=== PATIENT | male | born 1950 | race Caucasian/White ===

== ENCOUNTER 2017-09-21 03:12 | Observation (INO) | payer OTHER ==
[2017-09-21] VITALS (15 sets, daily range): BP systolic 106–143; BP diastolic 63–86; PULSE 90–116; RESP 16–20; TEMP 96.4–98.6; O2SAT 92–96
[~2017-09-21] VITALS: Ht 177.8 cm; Wt 98.7 kg
[~2017-09-21 03:12] MED LIST: ASPI1TAB69 PO; ATOR10TA15 PO; CLOTCRE TOPICAL; DIAZ5TAB PO; GABA100C4 PO; OXYC1TAB35 PO; PANT40TA3 PO; PLAV75TA29 PO
[2017-09-21] MEDS ORDERED: SODIUM CHLORID 0.9% 500 ML INJ 500 ML IV ONE ×2 (03:45→04:30)
[2017-09-21] MEDS ORDERED: SODIUM CHLORIDE 0.9% FLUSH 10 ML FLUSH IVF PRN (03:45)
[2017-09-21] MEDS ORDERED: ASPIRIN 81 MG CHEW TAB PO ONE (03:45)
[2017-09-21 04:06] LABS: AUTOMATED NEUTROPHIL # 14.8 TH/MM3 (1.8-7.7); BASOPHIL # 0.5 TH/MM3 (0-0.2); BASOPHIL % 2.7 % (0.0-2.0); EOSINOPHIL # 0.2 TH/MM3 (0-0.4); EOSINOPHIL % 1.4 % (0.0-4.0); HEMATOCRIT 55.7 % (39.0-51.0); HEMOGLOBIN 18.6 GM/DL (13.0-17.0); LYMPH % 5.5 % (9.0-44.0); LYMPHOCYTE # 0.9 TH/MM3 (1.0-4.8); MEAN CELL VOLUME 87.3 FL (80.0-100.0); MEAN CORPUSCULAR HEMOGLOBIN 29.1 PG (27.0-34.0); MEAN CORPUSCULAR HGB CONC 33.3 % (32.0-36.0); MEAN PLATELET VOLUME 8.8 FL (7.0-11.0); MONO % 3.8 % (0.0-8.0); MONOCYTE # 0.6 TH/MM3 (0-0.9); NEUT % 86.6 % (16.0-70.0); PLATELET COUNT 296 TH/MM3 (150-450); RED BLOOD COUNT 6.38 MIL/MM3 (4.50-5.90); RED CELL DISTRIBUTION WIDTH 13.1 % (11.6-17.2)
[2017-09-21 04:14] LABS: CHLORIDE 104 MEQ/L (98-107); SODIUM (NA) 137 MEQ/L (136-145)
[2017-09-21 04:16] LABS: CALCIUM 8.8 MG/DL (8.5-10.1)
[2017-09-21 04:17] LABS: BICARBONATE 25.3 MEQ/L (21.0-32.0); BLOOD UREA NITROGEN 16 MG/DL (7-18); GLUCOSE,RANDOM 177 MG/DL (74-106); MAGNESIUM 2.1 MG/DL (1.5-2.5)
[2017-09-21 04:18] LABS: PROTHROMBIN TIME - PATIENT 10.6 SEC (9.8-11.6)
[2017-09-21 04:20] LABS: GLOMERULAR FILTRATION RATE 55 ML/MIN (>89)
[2017-09-21 04:25] LABS: TROPONIN I LESS THAN 0.02 NG/ML (0.02-0.05)
[2017-09-21] MEDS ORDERED: ONDANSETRON HCL 4 MG/2 ML VIAL IV PUSH ONE (04:30)
--- NOTE | 2017-09-21 04:38 | PD ---
HPI Chief Complaint: Chest Pain Time Seen by Provider: 03:45 Travel History International Travel<30 days: No Contact w/Intl Traveler<30days: No Traveled to known affect area: No History of Present Illness HPI 67-year-old male presents to the emergency department by private transfer patient the care of her spouse for complaint of retrosternal chest pain and belching. Patient states he took Tums prior to arrival to the emergency department without symptom relief. Patient also complains of generalized weakness some shortness of breath and reports prior history of blood clots. 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 Patient was under the care of Dr. Parker. Patient also is under the care of Dr. Craig for presumptive management of dyslipidemia and high risk for coronary vessel disease. Patient does not smoke cigarettes. Patient denies any recent long distance travel protracted bedrest or surgical procedure. Patient denies any lower extremity numbness tingling weakness pallor or pain. Patient states he was awakened from sleep with symptoms. Patient denies any referred neck jaw back shoulder arm mid scapular abdominal pain. Patient denies any nausea or vomiting. Patient denies any diaphoresis. Patient states that he has taken no aspirin prior to arrival to the emergency department. Patient does take Plavix and aspirin on a daily basis. Patient states he has been taking his medications as prescribed. Patient describes discomfort as a tightness denies any sharp stabbing or ripping tearing discomfort and denies any abdominal pain. Pain is described as 1/10 in intensity. 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) Cardiovascular Problems: No Diminished Hearing: No Gastrointestinal Disorders: Yes GERD: Yes Musculoskeletal: No Neurologic: No Respiratory: No Tetanus Vaccination: Unknown Influenza Vaccination: Yes Past Surgical History Abdominal Surgery: No Cardiac Surgery: No Ear Surgery: No Endocrine Surgery: No Eye Surgery: No Genitourinary Surgery: No Oral Surgery: Yes (Peridontal ) Thoracic Surgery: No Other Surgery: Yes (peridontal surgery and melanoma removal, vascular) Social History Alcohol Use: Yes (RARE) Tobacco Use: Yes ("vapes") Substance Use: No Allergies-Medications (Allergen,Severity, Reaction): Coded Allergies: No Known Allergies (Unverified Allergy, Unknown, 09/21/17) Reported Meds & Prescriptions Reported Meds & Active Scripts Active Gabapentin 100 Mg Cap 200 Mg PO TID Two capsule three times a day Pantoprazole (Pantoprazole Sodium) 40 Mg Tab 40 Mg PO DAILY Plavix (Clopidogrel Bisulfate) 75 Mg Tab 75 Mg PO DAILY Clotrimazole-Betamethasone Topical (Betamethasone/Clotrimazole) 1-0.05% Cream 1 Applic TOPICAL BID Atorvastatin (Atorvastatin Calcium) 10 Mg Tab 10 Mg PO HS Diazepam 5 Mg Tab 5 Mg PO Q6HR PRN Oxycodone-Acetaminophen 7.5-325 mg Tab 1 Tab PO Q6H PRN Reported Aspirin 81 Mg Tabdr 81 Mg PO DAILY Review of Systems Except as stated in HPI: all other systems reviewed are Neg General / Constitutional: No: Fever, Chills HENT: No: Congestion Cardiovascular: Positive: Chest Pain or Discomfort Respiratory: Positive: Shortness of Breath Gastrointestinal: No: Nausea, Abdominal Pain Genitourinary: No: Flank Pain Musculoskeletal: No: Myalgias, Arthralgias, Weakness, Cramping, Edema, Pain Skin: No Rash Neurologic: No: Weakness Psychiatric: Positive: Anxiety Hematologic/Lymphatic: No: Lymph Node Enlargement Physical Exam Narrative GENERAL: Well-developed well-nourished anxious appearing male in no acute respiratory distress SKIN: Warm and dry. HEAD: Normocephalic. EYES: No scleral icterus. No injection or drainage. NECK: Supple, trachea midline. No JVD or lymphadenopathy. CARDIOVASCULAR: Regular rate and rhythm without murmurs, gallops, or rubs. RESPIRATORY: Breath sounds equal bilaterally. No accessory muscle use. GASTROINTESTINAL: Abdomen soft, non-tender, nondistended. MUSCULOSKELETAL: No cyanosis, or edema. Radial pulses 2+ to palpation bilaterally dorsalis pedis pulses 2+ to palpation bilaterally no lower or upper extremity coolness or pallor; brisk capillary refill less than 2 seconds BACK: Nontender without obvious deformity. No CVA tenderness. Data Data Last Documented VS Vital Signs Date Time Temp Pulse Resp B/P (MAP) Pulse Ox O2 Delivery O2 Flow Rate FiO2 09/21/17 06:12 102 16 122/68 (86) 95 Nasal Cannula 2.00 09/21/17 03:38 97.3 Orders Orders Electrocardiogram (09/21/17 03:45) Basic Metabolic Panel (Bmp) (09/21/17 03:45) Ckmb (Isoenzyme) Profile (09/21/17 03:45) Complete Blood Count With Diff (09/21/17 03:45) Magnesium (Mg) (09/21/17 03:45) Prothrombin Time / Inr (Pt) (09/21/17 03:45) Act Partial Throm Time (Ptt) (09/21/17 03:45) Troponin I (09/21/17 03:45) Ecg Monitoring (09/21/17 03:45) Bilateral Bp Monitoring (09/21/17 03:45) Iv Access Insert/Monitor (09/21/17 03:45) Oximetry (09/21/17 03:45) Oxygen Administration (09/21/17 03:45) Aspirin Chew (Aspirin Chew) (09/21/17 03:45) Sodium Chloride 0.9% Flush (Ns Flush) (09/21/17 03:45) Sodium Chlorid 0.9% 500 Ml Inj (Ns 500 M (09/21/17 03:45) Ondansetron Inj (Zofran Inj) (09/21/17 04:30) Sodium Chlorid 0.9% 500 Ml Inj (Ns 500 M (09/21/17 04:30) Chest, Single Ap (09/21/17 03:45) Ct Pulmonary Angiogram (09/21/17 ) Ct Abd/Pel W Iv Contrast(Rout) (09/21/17 ) Hepatic Functional Panel (09/21/17 03:53) Iohexol 350 Inj (Omnipaque 350 Inj) (09/21/17 05:22) Urinalysis - C+S If Indicated (09/21/17 06:20) Admit Order (Ed Use Only) (09/21/17 ) Tuckpointer / Telemetry HERNAN.Q8H (09/21/17 06:20) Activity Oob With Assistance (09/21/17 06:20) Notify Dr: Other (09/21/17 06:20) Labs Laboratory Tests Test 09/21/17 03:53 White Blood Count 17.0 TH/MM3 Red Blood Count 6.38 MIL/MM3 Hemoglobin 18.6 GM/DL Hematocrit 55.7 % Mean Corpuscular Volume 87.3 FL Mean Corpuscular Hemoglobin 29.1 PG Mean Corpuscular Hemoglobin Concent 33.3 % Red Cell Distribution Width 13.1 % Platelet Count 296 TH/MM3 Mean Platelet Volume 8.8 FL Neutrophils (%) (Auto) 86.6 % Lymphocytes (%) (Auto) 5.5 % Monocytes (%) (Auto) 3.8 % Eosinophils (%) (Auto) 1.4 % Basophils (%) (Auto) 2.7 % Neutrophils # (Auto) 14.8 TH/MM3 Lymphocytes # (Auto) 0.9 TH/MM3 Monocytes # (Auto) 0.6 TH/MM3 Eosinophils # (Auto) 0.2 TH/MM3 Basophils # (Auto) 0.5 TH/MM3 CBC Comment AUTO DIFF Differential Comment AUTO DIFF CONFIRMED Platelet Estimate NORMAL Platelet Morphology Comment NORMAL Red Cell Morphology Comment NORMAL Prothrombin Time 10.6 SEC Prothromb Time International Ratio 1.0 RATIO Activated Partial Thromboplast Time 23.8 SEC Blood Urea Nitrogen 16 MG/DL Creatinine 1.30 MG/DL Random Glucose 177 MG/DL Total Protein 7.9 GM/DL Albumin 3.9 GM/DL Calcium Level 8.8 MG/DL Magnesium Level 2.1 MG/DL Alkaline Phosphatase 107 U/L Aspartate Amino Transf (AST/SGOT) 20 U/L Alanine Aminotransferase (ALT/SGPT) 32 U/L Total Bilirubin 0.3 MG/DL Direct Bilirubin 0.1 MG/DL Sodium Level 137 MEQ/L Potassium Level 4.9 MEQ/L Chloride Level 104 MEQ/L Carbon Dioxide Level 25.3 MEQ/L Anion Gap 8 MEQ/L Estimat Glomerular Filtration Rate 55 ML/MIN Indirect Bilirubin 0.2 MG/DL Total Creatine Kinase 84 U/L Troponin I LESS THAN 0.02 NG/ML [facility] Medical Decision Making Medical Screen Exam Complete: Yes Emergency Medical Condition: Yes Medical Record Reviewed: Yes Interpretation(s) EKG normal sinus rhythm rate [address] elevation injury pattern or ectopy noted Last Impressions Chest X-Ray 09/21/17 6400 Signed Impressions: Service Date/Time: Thursday, September 21, 2017 04:20 - CONCLUSION: No acute disease. Kenney Birmingham MD CBC & BMP Diagram 09/21/17 03:53 Total Protein 7.9, Albumin 3.9, Calcium Level 8.8, Magnesium Level 2.1, Alkaline Phosphatase 107, Aspartate Amino Transf (AST/SGOT) 20, Alanine Aminotransferase (ALT/SGPT) 32, Total Bilirubin 0.3, Direct Bilirubin 0.1 Vital Signs Date Time Temp Pulse Resp B/P (MAP) Pulse Ox O2 Delivery O2 Flow Rate FiO2 09/21/17 05:02 90 16 143/86 (105) 96 Nasal Cannula 2.00 09/21/17 04:17 114/73 (87) 117/72 (87) 09/21/17 04:04 Room Air 09/21/17 04:03 95 Nasal Cannula 2.00 09/21/17 04:03 18 95 Nasal Cannula 2.00 09/21/17 03:38 97.3 101 18 109/74 (86) 93 Room Air 09/21/17 03:19 97.5 104 20 106/63 (77) 94 Troponin I: Less than 0.02, not elevated; CK total 84, not elevated Differential Diagnosis Chest pain ACS myocardial infarction dissection PE Narrative Course Patient immediately placed on child monitor with continuous pulse oximetry 2 L /min nasal cannula administered EKG performed which is sinus rhythm rate [address] elevation or injury pattern or ectopy noted IV access obtained specimens collected and sent for resulting patient administered aspirin 162 mg by mouth chewed patient's blood pressure is low normal therefore 500 cc bolus of normal saline administered prior to attempting administration of nitroglycerin for chest discomfort currently however pain is only 1/2 intensity At 4:30 AM patient is undergoing imaging study/chest x-ray and complains of nausea with episode of vomiting Zofran 4 mg IV administered additional bolus of normal saline administered At 4:33 AM patient rates his discomfort 0/10 intensity and states his nausea has resolved patient has received a one-time dose of Zofran 4 mg IV and is receiving fluid bolus. At 5:10 AM patient informed of normal range cardiac enzymes patient reports continues to feel improved we will proceed with CT pulmonary angiogram due to complaint of shortness of breath and chest pain upon arrival as well as CT abdomen pelvis to evaluate further for possible intra-abdominal versus intrathoracic etiology for leukocytosis with left shift as well as chest pain nausea shortness of breath and generalized weakness. Sepsis Criteria SIRS Criteria (2 or more): Heart rate over 90, WBC > 00547, < 4000 or > 10% bands Physician Communication Physician Communication discussed with [facility] service for obs--chest pain/atypical cp, leukocytosis, sirs Diagnosis Primary Impression: Chest pain Additional Impressions: Leukocytosis SIRS (systemic inflammatory response syndrome) Mishel Moss MD Sep 21, 2017 04:38
--- NOTE | 2017-09-21 04:48 | RADRPT ---
EXAM DATE/TIME: 09/21/2017 04:20 [facility] COMPARISON: No previous studies available for comparison. INDICATIONS : Chest pain for 3 hours MEDICAL HISTORY : None. SURGICAL HISTORY : None. ENCOUNTER: Initial ACUITY: 1 day PAIN SCORE: 8/10 LOCATION: Midline chest FINDINGS: A single view of the chest demonstrates the lungs to be symmetrically aerated without evidence of mas s, infiltrate or effusion. The cardiomediastinal contours are unremarkable. Osseous structures are intact. CONCLUSION: No acute disease. Kenney Birmingham MD on September 21, 2017 at 4:46 Board Certified Radiologist. This report was verified electronically.
[2017-09-21 04:57] LABS: ALBUMIN 3.9 GM/DL (3.4-5.0)
[2017-09-21 05:00] LABS: ALT (GPT) 32 U/L (12-78); AST (GOT) 20 U/L (15-37); DIRECT BILIRUBIN ADULT 0.1 MG/DL (0.0-0.2)
[2017-09-21 05:02] LABS: INDIRECT BILIRUBIN 0.2 MG/DL (0.0-0.8); TOTAL BILIRUBIN ADULT 0.3 MG/DL (0.2-1.0); TOTAL PROTEIN 7.9 GM/DL (6.4-8.2)
[2017-09-21 05:03] LABS: ALKALINE PHOSPHATASE 107 U/L (45-117)
[2017-09-21] MEDS ORDERED: IOHEXOL 350 MG/ML 10 ML VIAL (for RAD DIAG) IVCONTRAST ONE (05:22)
--- NOTE | 2017-09-21 05:43 | RADRPT ---
EXAM DATE/TIME: 09/21/2017 05:05 [facility] COMPARISON: CHEST SINGLE AP, September 21, 2017, 4:20. INDICATIONS : Dyspnea. Chest pain. IV CONTRAST: 100 cc Omnipaque 350 (iohexol) IV ; Cumulative dose for multiple exams. RADIATION DOSE: 22.58 CTDIvol (mGy) ; Combined studies MEDICAL HISTORY : None SURGICAL HISTORY : None. ENCOUNTER: Initial ACUITY: 1 day PAIN SCALE: 1/10 LOCATION: chest TECHNIQUE: Volumetric scanning of the chest was performed using a pulmonary embolism protocol MIP images were re constructed. Using automated exposure control and adjustment of the mA and/or kV according to patien t size, radiation dose was kept as low as reasonably achievable to obtain optimal diagnostic quality images. DICOM format image data is available electronically for review and comparison. Follow-up recommendations for detected pulmonary nodules are based at a minimum on nodule size and pa tient risk factors according to Fleischner Society Guidelines. FINDINGS: PULMONARY ARTERIES: No filling defects are seen in the pulmonary arteries through the segmental level. LUNGS: There is no consolidation or pneumothorax . No concerning pulmonary nodule is visualized. Underlying emphysema and hyperinflation are noted. There is bullous change greatest in the upper lobes. PLEURAE: There is no pleural thickening or pleural effusion. MEDIASTINUM: There is good visualization of the great vessels of the middle mediastinum. No evidence of mediastin al or hilar adenopathy/mass. MUSCULOSKELETAL: Within normal limits for patient age. MISCELLANEOUS: The visualized upper abdominal organs demonstrate no acute abnormality. There is a small hiatal herni a. There are low attenuation lesions in the liver. CONCLUSION: 1. Emphysema and bullous change. 2. No evidence of pulmonary embolism. Kenney Birmingham MD on September 21, 2017 at 5:38 Board Certified Radiologist. This report was verified electronically.
--- NOTE | 2017-09-21 05:46 | RADRPT ---
EXAM DATE/TIME: 09/21/2017 05:05 [facility] COMPARISON: CTA RUNOFF W 3D RECON, January 28, 2015, 21:39. INDICATIONS : Abdominal pain. Nausea. Vomiting. IV CONTRAST: 100 cc Omnipaque 350 (iohexol) IV ; Cumulative dose for multiple exams. ORAL CONTRAST: No oral contrast ingested. RADIATION DOSE: 21.74 CTDIvol (mGy) ; Combined studies MEDICAL HISTORY : None SURGICAL HISTORY : None. ENCOUNTER: Initial ACUITY: 1 day PAIN SCALE: 1/10 LOCATION: Bilateral abdomen. TECHNIQUE: Volumetric scanning of the abdomen and pelvis was performed. Using automated exposure control and ad justment of the mA and/or kV according to patient size, radiation dose was kept as low as reasonably achievable to obtain optimal diagnostic quality images. DICOM format image data is available electro nically for review and comparison. FINDINGS: LOWER LUNGS: The visualized lower lungs are clear. LIVER: Homogeneous density with benign appearing low-density lesions in the liver which appear cystic. There is no dilation of the biliary tree. No calcified gallstones. SPLEEN: Normal size without lesion. PANCREAS: Within normal limits. KIDNEYS: Normal in size and shape. There is no mass, stone or hydronephrosis. ADRENAL GLANDS: Within normal limits. VASCULAR: There is no aortic aneurysm. BOWEL/MESENTERY: There is a small hiatal hernia. The stomach, small bowel, and colon demonstrate no acute abnormality. There is no free intraperitoneal air or fluid. ABDOMINAL WALL: Within normal limits. RETROPERITONEUM: There is no lymphadenopathy. BLADDER: No wall thickening or mass. REPRODUCTIVE: Within normal limits. INGUINAL: There is no lymphadenopathy or hernia. MUSCULOSKELETAL: Within normal limits for patient age. CONCLUSION: 1. Unremarkable bowel gas pattern. 2. Benign-appearing cystic lesions in the liver. 3. Small hiatal hernia. Kenney Birmingham MD on September 21, 2017 at 5:42 Board Certified Radiologist. This report was verified electronically.
[2017-09-21 08:19] LABS: BILIRUBIN, URINE NEG (NEG); BLOOD, URINE TRACE (NEG); GLUCOSE,URINE NEG (NEG); KETONE, URINE NEG (NEG); NITRITE,URINE NEG (NEG); URINE COLOR YELLOW (YELLW/STRAW); URINE LEUKOCYTE ESTERASE NEG (NEG)
[2017-09-21 08:23] LABS: RBC, URINE 0-3 /hpf (0-3); SQUAMOUS EPITHELIAL CELL URINE 0-5 /hpf (0-5)
--- NOTE | 2017-09-21 13:46 | HHI.HP ---
[facility] Ralf Zamarripa MD Admission Diagnosis Chest pain; leukocytosis Diagnoses: (1) Chest pain (2) SIRS (systemic inflammatory response syndrome) Chief Complaint: Chest pain Travel History International Travel<30 Days: No Contact w/Intl Traveler <30 Da: No Traveled to Known Affected Are: No Sepsis Criteria SIRS Criteria (2 or more): Heart rate over 90, WBC > 42677, < 4000 or > 10% bands Criteria Outcome: Meets SIRS criteria History of Present Illness Written by Kanika Edouard, acting as scribe for Dr. Wu on 09/21/17 at 13:30. This is a 67-year-old male patient with a known medical history of GERD, melanoma and PAD who presented to the ED with complaints of chest pain. Patient states he woke up at 0130 with burping and chest pain. Patient characterized the pain as aching in nature. Chest pain lasts roughly 5 minutes, release of gas and burping makes the pain worse, and dissipates after. Denies any radiation of pain. No chest pain to palpation. Denies any known alleviating factors. Does admit to associated emesis x 6 times today. Denies nausea. Admits to lightheadedness, dizzy and weak and diaphoresis. Attempted eating today but has no appetite with continued gas and burping. Denies any recent fever, chills , cough. Does admit to seasonal allergies. Denies any prior CAD or heart disease. Left leg blood clot in 2014. Denies any PE. Does have PAD with left lower extremity stent and does take Plavix, aspirin and Lipitor. Did undergo a cardiac stress test June 2016 which was reportedly negative. Followed with Dr. Craig and sees him every 6 months. Admits to smoking 1 ppd x 30 years, quit in December 2014. Admits to using vapors. At the time of assessment patient's chest pain has improved. is at bedside assisting with history. Review of Systems Constitutional: COMPLAINS OF: Diaphoretic episodes, DENIES: Fever, Chills Eyes: DENIES: Blurred vision, Diplopia Respiratory: COMPLAINS OF: Shortness of breath, DENIES: Cough, Sputum production Cardiovascular: COMPLAINS OF: Chest pain, Palpitations Gastrointestinal: COMPLAINS OF: Vomiting, DENIES: Abdominal pain, Black stools , Bloody stools, Constipation, Diarrhea, Nausea Genitourinary: COMPLAINS OF: Urinary frequency Musculoskeletal: DENIES: Joint pain Psychiatric: DENIES: Anxiety Except as stated in HPI: all other systems reviewed are Neg Past Family Social History Past Medical History GERD on PPI Degenerative disc disease in back Melanoma PAD Past Surgical History Melanoma removed on left knee. Skin cancer on back removed. Left lower extremity stents. Reported Medications Active Gabapentin 100 Mg Cap 200 Mg PO TID Two capsule three times a day Pantoprazole (Pantoprazole Sodium) 40 Mg Tab 40 Mg PO DAILY Plavix (Clopidogrel Bisulfate) 75 Mg Tab 75 Mg PO DAILY Clotrimazole-Betamethasone Topical (Betamethasone/Clotrimazole) 1-0.05% Cream 1 Applic TOPICAL BID Atorvastatin (Atorvastatin Calcium) 10 Mg Tab 10 Mg PO HS Diazepam 5 Mg Tab 5 Mg PO Q6HR PRN Oxycodone-Acetaminophen 7.5-325 mg Tab 1 Tab PO Q6H PRN Reported Aspirin 81 Mg Tabdr 81 Mg PO DAILY Allergies: Coded Allergies: No Known Allergies (Unverified Allergy, Unknown, 09/21/17) Active Ordered Medications Current Medications Medications (Trade) Dose Ordered Sig/Edwin Route Start Time Stop Time Status Last Admin (NS Flush) 2 ml UNSCH PRN IVF 09/21/17 03:45 Family History Mom had unspecified cancer. Father had emphysema, was a smoker. Social History Denies any current tobacco use. Does admit to smoking 1 ppd cigarettes history for 30 years. Quit in 2014. Physical Exam Vital Signs Vital Signs Date Time Temp Pulse Resp B/P (MAP) Pulse Ox O2 Delivery O2 Flow Rate FiO2 09/21/17 12:00 96.7 116 19 110/69 (83) 92 09/21/17 09:00 96.6 110 18 119/70 (86) 94 09/21/17 09:00 96.6 110 18 119/70 (86) 94 09/21/17 08:45 09/21/17 07:40 98.0 109 16 111/64 (80) 96 Nasal Cannula 2.00 09/21/17 06:12 102 16 122/68 (86) 95 Nasal Cannula 2.00 09/21/17 05:02 90 16 143/86 (105) 96 Nasal Cannula 2.00 09/21/17 04:17 114/73 (87) 117/72 (87) 09/21/17 04:04 Room Air 09/21/17 04:03 95 Nasal Cannula 2.00 09/21/17 04:03 18 95 Nasal Cannula 2.00 09/21/17 03:38 97.3 101 18 109/74 (86) 93 Room Air 09/21/17 03:19 97.5 104 20 106/63 (77) 94 Physical Exam GENERAL: This is a well-nourished, well-developed patient, in no apparent distress. SKIN: No rashes, ecchymoses or lesions. Cool and dry. HEAD: Atraumatic. Normocephalic. No temporal or scalp tenderness. EYES: Pupils equal round and reactive. Extraocular motions intact. No scleral icterus. No injection or drainage. ENT: Nose without bleeding, purulent drainage or septal hematoma. Throat without erythema, tonsillar hypertrophy or exudate. Uvula midline. Airway patent. NECK: Trachea midline. No JVD or lymphadenopathy. Supple, nontender, no meningeal signs. CARDIOVASCULAR: Regular rate and rhythm without murmurs, gallops, or rubs. RESPIRATORY: Clear to auscultation. Breath sounds equal bilaterally. No wheezes , rales, or rhonchi. GASTROINTESTINAL: Abdomen soft, non-tender, nondistended. No hepato-splenomegaly , or palpable masses. No guarding. MUSCULOSKELETAL: Extremities without clubbing, cyanosis, or edema. No joint tenderness, effusion, or edema noted. No calf tenderness. Negative Homans sign bilaterally. NEUROLOGICAL: Awake and alert. Cranial nerves II through XII intact. Motor and sensory grossly within normal limits. Five out of 5 muscle strength in all muscle groups. Normal speech. Laboratory Laboratory Tests Test 09/21/17 03:53 09/21/17 06:30 09/21/17 08:10 White Blood Count 17.0 Red Blood Count 6.38 Hemoglobin 18.6 Hematocrit 55.7 Mean Corpuscular Volume 87.3 Mean Corpuscular Hemoglobin 29.1 Mean Corpuscular Hemoglobin Concent 33.3 Red Cell Distribution Width 13.1 Platelet Count 296 Mean Platelet Volume 8.8 Neutrophils (%) (Auto) 86.6 Lymphocytes (%) (Auto) 5.5 Monocytes (%) (Auto) 3.8 Eosinophils (%) (Auto) 1.4 Basophils (%) (Auto) 2.7 Neutrophils # (Auto) 14.8 Lymphocytes # (Auto) 0.9 Monocytes # (Auto) 0.6 Eosinophils # (Auto) 0.2 Basophils # (Auto) 0.5 CBC Comment AUTO DIFF Differential Comment AUTO DIFF CONFIRMED Platelet Estimate NORMAL Platelet Morphology Comment NORMAL Red Cell Morphology Comment NORMAL Prothrombin Time 10.6 Prothromb Time International Ratio 1.0 Activated Partial Thromboplast Time 23.8 Blood Urea Nitrogen 16 Creatinine 1.30 Random Glucose 177 Total Protein 7.9 Albumin 3.9 Calcium Level 8.8 Magnesium Level 2.1 Alkaline Phosphatase 107 Aspartate Amino Transf (AST/SGOT) 20 Alanine Aminotransferase (ALT/SGPT) 32 Total Bilirubin 0.3 Direct Bilirubin 0.1 Sodium Level 137 Potassium Level 4.9 Chloride Level 104 Carbon Dioxide Level 25.3 Anion Gap 8 Estimat Glomerular Filtration Rate 55 Indirect Bilirubin 0.2 Total Creatine Kinase 84 Troponin I LESS THAN 0.02 Lactic Acid Level 2.0 Urine Collection Type CLEAN CATCH Urine Color YELLOW Urine Turbidity CLEAR Urine pH 5.0 Urine Specific [place] LESS/EQUAL 1.005 Urine Protein NEG Urine Glucose (UA) NEG Urine Ketones NEG Urine Occult Blood TRACE Urine Nitrite NEG Urine Bilirubin NEG Urine Urobilinogen 0.2 Urine Leukocyte Esterase NEG Urine RBC 0-3 Urine Squamous Epithelial Cells 0-5 Microscopic Urinalysis Comment CULT NOT INDICATED Urine Collection Time 08:10 Date/Time Source Procedure Growth Status 09/21/17 06:35 Blood Peripheral Aerobic Blood Culture Pending Received 09/21/17 06:35 Blood Peripheral Anaerobic Blood Culture Pending Received Result Diagram: 09/21/17 0353 09/21/17 0353 Imaging Last Impressions Chest X-Ray 09/21/17 0345 Signed Impressions: Service Date/Time: Thursday, September 21, 2017 04:20 - CONCLUSION: No acute disease. Kenney Birmingham MD CT Angiography 09/21/17 0000 Signed Impressions: Service Date/Time: Thursday, September 21, 2017 05:05 - CONCLUSION: 1. Emphysema and bullous change. 2. No evidence of pulmonary embolism. Kenney Birmingham MD Abdomen/Pelvis CT 09/21/17 0000 Signed Impressions: Service Date/Time: Thursday, September 21, 2017 05:05 - CONCLUSION: 1. Unremarkable bowel gas pattern. 2. Benign-appearing cystic lesions in the liver. 3. Small hiatal hernia. Kenney Birmingham MD Septic Shock Reassessment Septic shock perfusion: reassessment completed Caprini VTE Risk Assessment Caprini VTE Risk Assessment: Mod/High Risk (score >= 2) Caprini Risk Assessment Model Point Value = 1 Point Value = 2 Point Value = 3 Point Value = 5 Age 41-60 Minor surgery BMI > 25 kg/m2 Swollen legs Varicose veins or History of unexplained or recurrent spontaneous Oral contraceptives or hormone replacement Sepsis (< 1 month) Serious lung disease, including pneumonia (< 1 month) Abnormal pulmonary function Acute myocardial infarction Congestive heart failure (< 1 month) History of inflammatory bowel disease Medical patient at bed rest Age 61-74 Arthroscopic surgery Major open surgery (> 45 min) Laparoscopic surgery (> 45 min) Malignancy Confined to bed (> 72 hours) Immobilizing plaster cast Central venous access Age >= 75 History of VTE Family history of VTE Factor V Leiden Prothrombin [id number] Lupus anticoagulant Anticardiolipin antibodies Elevated serum homocysteine Heparin-induced thrombocytopenia Other congenital or acquired thrombophilia Stroke (< 1 month) Elective arthroplasty Hip, pelvis, or leg fracture Acute spinal cord injury (< 1 month) Prophylaxis Regimen Total Risk Factor Score Risk Level Prophylaxis Regimen 0-1 Low Early ambulation 2 Moderate Order ONE of the following: *Sequential Compression Device (SCD) *Heparin 5000 units SQ BID 3-4 Higher Order ONE of the following medications: *Heparin 5000 units SQ TID *Enoxaparin/Lovenox 40 mg SQ daily (WT < 150 kg, CrCl > 30 mL/min) *Enoxaparin/Lovenox 30 mg SQ daily (WT < 150 kg, CrCl > 10-29 mL/min) *Enoxaparin/Lovenox 30 mg SQ BID (WT < 150 kg, CrCl > 30 mL/min) AND/OR *Sequential Compression Device (SCD) 5 or more Highest Order ONE of the following medications: *Heparin 5000 units SQ TID (Preferred with Epidurals) *Enoxaparin/Lovenox 40 mg SQ daily (WT < 150 kg, CrCl > 30 mL/min) *Enoxaparin/Lovenox 30 mg SQ daily (WT < 150 kg, CrCl > 10-29 mL/min) *Enoxaparin/Lovenox 30 mg SQ BID (WT < 150 kg, CrCl > 30 mL/min) AND *Sequential Compression Device (SCD) Assessment and Plan Problem List: (1) Chest pain ICD Code: R07.9 - Chest pain Status: Acute (2) SIRS (systemic inflammatory response syndrome) ICD Code: R65.10 - Systemic inflammatory response syndrome (SIRS) of non- infectious origin without acute organ dysfunction Status: Acute Assessment and Plan This is a 67-year-old male patient with a known medical history of GERD, melanoma and PAD who presented to the ED with complaints of chest pain. Chest pain - Serial EKGs and serial troponins have been ordered for ruling out ACS purposes. Follow troponin trend. EKG reviewed showing sinus tachycardia, no ST changes. Continued on cardiac telemetry, monitor for any arrhythmias. - Continue daily aspirin. Control pain, morphine IV available as needed for pain scale. - Supplemental O2 as needed, patient on room air with adequate saturations. Leukocytosis and tachycardia on presentation, meets SIRS criteria. Unknown source. Epigastric pain with diarrhea -Lactic acid 2.0. White blood cell 17.0. UA negative. Will check C. difficile for complaints of diarrhea. -Chest x-ray reviewed showing no acute disease. CT angiogram reviewed showing emphysema and bullous change. No evidence of PE. Abdomen/pelvis CT reviewed showing unremarkable bowel gas pattern. Small hiatal hernia. -Status post 1 L NS bolus in the ED. -Blood cultures ordered and pending follow. History of PAD and stent placement in left lower extremity: Continue aspirin, Plavix and gabapentin. Hyperlipidemia, chronic: Continue home atorvastatin. This note was transcribed by DEMETRIO Franco. I, Dr. Ashanti Wu personally performed the history, physical exam, and medical decision making; and confirmed the accuracy of the information in the transcribed note. Authenticated by Dr. Ashanti Wu on 09/21/17 at 13:30. Kanika Edouard Sep 21, 2017 13:46 Ashanti Wu MD Sep 21, 2017 13:50
[2017-09-21] MEDS ORDERED: NALOXONE HCL 0.4 MG/ML AMP IV PUSH PRN (14:15)
[2017-09-21] MEDS ORDERED: BISACODYL 10 MG SUPP RECTAL PRN (14:15)
[2017-09-21] MEDS ORDERED: SENNOSIDES 8.6 MG TAB PO PRN (14:15)
[2017-09-21] MEDS ORDERED: LACTULOSE SYRUP 20 GM/30 ML CUP PO PRN (14:15)
[2017-09-21] MEDS ORDERED: DIAZEPAM 5 MG TAB PO PRN (14:15)
[2017-09-21] MEDS ORDERED: MAGNESIUM HYDROXIDE SUSP 30 ML CUP PO PRN (14:15)
[2017-09-21] MEDS ORDERED: MORPHINE SULFATE 2 MG/ML INJ IV PUSH PRN (14:15)
[2017-09-21] MEDS: PANTOPRAZOLE SOD 40 MG DELAYED RELEASE TAB PO SCH (15:00)
[2017-09-21] MEDS ORDERED: LACTOBACILLUS ACIDOPHILUS TAB PO ONE (15:15)
[2017-09-21] MEDS: SODIUM CHLOR 0.9% 1000 ML INJ 1,000 ML IV SCH (16:15)
[2017-09-21] MEDS: CIPROFLOXACIN 400 MG PREMIX 200 ML IV SCH (17:00)
[2017-09-21] MEDS: metroNIDAZOLE 500 MG INJ 100 ML IV SCH (18:00)
[2017-09-21] MEDS: GABAPENTIN 100 MG CAP PO SCH (18:18)
[2017-09-21] MEDS: oxyCODONE/ACETAMINOPHEN 7.5 MG/325 MG TAB PO PRN (18:21)
--- NOTE | 2017-09-21 19:16 | EKG ---
Date Performed: 09/21/2017 Time Performed: 03:56:28 PTAGE: 67 years EKG: Sinus rhythm NORMAL ECG NO PREVIOUS TRACING DOCTOR: Pb Rubio Interpretating Date/Time 09/21/2017 19:14:18
[2017-09-21] MEDS: DOCUSATE SODIUM 50 MG/SENNA 8.6 MG TAB PO SCH (21:00)
[2017-09-21] MEDS: LACTOBACILLUS ACIDOPHILUS TAB PO SCH (22:13)
[2017-09-21] MEDS: ATORVASTATIN 10 MG TAB PO SCH (22:13)
[2017-09-21] MEDS: BETAMETHASONE/CLOTRIMAZOLE CREAM 15 GM TOPICAL SCH (22:13)
[2017-09-22] VITALS (7 sets, daily range): BP systolic 119–137; BP diastolic 64–75; PULSE 90–114; RESP 14–20; TEMP 96.4–98.6; O2SAT 92–95
[2017-09-22] MEDS: CIPROFLOXACIN 400 MG PREMIX 200 ML IV SCH ×3 (02:27→16:56)
[2017-09-22] MEDS: metroNIDAZOLE 500 MG INJ 100 ML IV SCH ×3 (03:10→16:58)
[2017-09-22] MEDS: SODIUM CHLOR 0.9% 1000 ML INJ 1,000 ML IV SCH ×3 (06:08→21:53)
--- NOTE | 2017-09-22 07:36 | HHI.PR ---
Subjective Remarks No n/v/d/c. Had 10 x diarrhea yesterday, none overnight. No fever or chills. Denies sob. Still with epigastric/chest pain mainly when burping. No fever or chills. Feels tired. Objective Vitals Vital Signs Date Time Temp Pulse Resp B/P (MAP) Pulse Ox O2 Delivery O2 Flow Rate FiO2 09/22/17 04:00 97.9 102 20 124/75 (91) 93 09/22/17 00:00 98.0 114 20 119/68 (85) 93 09/21/17 21:00 93 21 09/21/17 20:00 96.4 107 20 122/75 (91) 93 09/21/17 20:00 115 09/21/17 20:00 20 09/21/17 16:00 98.6 114 18 117/77 (90) 94 09/21/17 15:16 93 21 09/21/17 15:00 114 09/21/17 12:00 96.7 116 19 110/69 (83) 92 09/21/17 09:00 96.6 110 18 119/70 (86) 94 09/21/17 09:00 96.6 110 18 119/70 (86) 94 09/21/17 08:45 09/21/17 07:40 98.0 109 16 111/64 (80) 96 Nasal Cannula 2.00 I/O 09/21/17 09/21/17 09/21/17 09/22/17 09/22/17 09/22/17 07:00 15:00 23:00 07:00 15:00 23:00 Intake Total 1000 ml 1300 ml Balance 1000 ml 1300 ml Intake Oral 0 ml IV Total 1000 ml 1300 ml # Voids 2 # Bowel Movements 1 Result Diagram: 09/21/17 0353 09/21/17 0353 Imaging Last Impressions Chest X-Ray 09/21/17 0345 Signed Impressions: Service Date/Time: Thursday, September 21, 2017 04:20 - CONCLUSION: No acute disease. Kenney Birmingham MD CT Angiography 09/21/17 0000 Signed Impressions: Service Date/Time: Thursday, September 21, 2017 05:05 - CONCLUSION: 1. Emphysema and bullous change. 2. No evidence of pulmonary embolism. Kenney Birmingham MD Abdomen/Pelvis CT 09/21/17 0000 Signed Impressions: Service Date/Time: Thursday, September 21, 2017 05:05 - CONCLUSION: 1. Unremarkable bowel gas pattern. 2. Benign-appearing cystic lesions in the liver. 3. Small hiatal hernia. Kenney Birmingham MD Objective Remarks GENERAL: This is a well-nourished, well-developed patient, in no apparent distress. CARDIOVASCULAR: Regular rate and rhythm without murmurs, gallops, or rubs. RESPIRATORY: Clear to auscultation. Breath sounds equal bilaterally. No wheezes , rales, or rhonchi. GASTROINTESTINAL: Abdomen soft, non-tender, nondistended. No hepato-splenomegaly , or palpable masses. No guarding. MUSCULOSKELETAL: Extremities without clubbing, cyanosis, or edema. No joint tenderness, effusion, or edema noted. No calf tenderness. Negative Homans sign bilaterally. NEUROLOGICAL: Awake and alert. Cranial nerves II through XII intact. Motor and sensory grossly within normal limits. Five out of 5 muscle strength in all muscle groups. Normal speech. A/P Problem List: (1) Chest pain ICD Code: R07.9 - Chest pain Status: Acute (2) SIRS (systemic inflammatory response syndrome) ICD Code: R65.10 - Systemic inflammatory response syndrome (SIRS) of non- infectious origin without acute organ dysfunction Status: Acute Assessment and Plan This is a 67-year-old male patient with a known medical history of GERD, melanoma and PAD who presented to the ED with complaints of chest pain. Chest pain - Serial EKGs and serial troponins neg x3. EKG reviewed showing sinus tachycardia, no ST changes. Continued on cardiac telemetry, monitor for any arrhythmias. - Lexiscan is negative - Continue daily aspirin. Control pain, morphine IV available as needed for pain scale. - Supplemental O2 as needed, patient on room air with adequate saturations. Poss sepsis (Leukocytosis and tachycardia on presentation, poss GI source- GE). Epigastric pain with diarrhea and vomiting (GE) -Lactic acid 2.0. White blood cell 17.0, tachycardic on admission. UA negative. CXR no signs of infection. Will check C. difficile for complaints of diarrhea. -Chest x-ray reviewed showing no acute disease. CT angiogram reviewed showing emphysema and bullous change. No evidence of PE. Abdomen/pelvis CT reviewed showing unremarkable bowel gas pattern. Small hiatal hernia. -Status post 1 L NS bolus in the ED. -Blood cultures ordered and pending, follow. - WBC back to normal History of PAD and stent placement in left lower extremity: Continue aspirin, Plavix and gabapentin. Hyperlipidemia, chronic: Continue home atorvastatin. Plan for Lexiscan. Improved with abx diarrhea and vomiting resolving. Trend WBCs Poss DC later today or tomorrow if improved Lexiscan normal [id number] patient still with diarrhea ans feels weak. Discharge Planning DC plan DC home in stable condition condition, to follow-up with PCP and consultants as outpatient Diet healthy heart diet Activity ad xander. as tolerated Medications per med reconciliation Ashanti Wu MD Sep 22, 2017 07:36
[2017-09-22] MEDS: DOCUSATE SODIUM 50 MG/SENNA 8.6 MG TAB PO SCH ×2 (09:00→20:07)
[2017-09-22] MEDS: ASPIRIN EC 81 MG TABEC PO SCH (09:50)
[2017-09-22] MEDS: PANTOPRAZOLE SOD 40 MG DELAYED RELEASE TAB PO SCH (09:52)
[2017-09-22] MEDS: GABAPENTIN 100 MG CAP PO SCH ×3 (09:52→16:58)
[2017-09-22] MEDS: CLOPIDOGREL 75 MG TAB PO SCH (09:53)
[2017-09-22] MEDS: BETAMETHASONE/CLOTRIMAZOLE CREAM 15 GM TOPICAL SCH ×2 (09:53→20:07)
[2017-09-22] MEDS: LACTOBACILLUS ACIDOPHILUS TAB PO SCH ×2 (09:54→20:07)
[2017-09-22] MEDS ORDERED: CIPR500T2 PO (09:59)
[2017-09-22] MEDS ORDERED: METR-1 PO (09:59)
[2017-09-22] MEDS ORDERED: LACTCHW3 CHEW (09:59)
--- NOTE | 2017-09-22 10:02 | HHI.DCPOC ---
Discharge Care Plan Goals to Promote Your Health * To prevent worsening of your condition and complications * To maintain your health at the optimal level Directions to Meet Your Goals Take your medications as prescribed Follow your dietary instruction Follow activity as directed Keep your appointments as scheduled Take your immunizations and boosters as scheduled If your symptoms worsen call your PCP, if no PCP go to Urgent Care Center or Emergency Room Smoking is Dangerous to Your Health. Avoid second hand smoke Call the 24-hour hour crisis hotline for domestic abuse at Ashanti Wu MD Sep 22, 2017 10:02
[2017-09-22] MEDS: oxyCODONE/ACETAMINOPHEN 7.5 MG/325 MG TAB PO PRN (10:56)
[2017-09-22 11:27] LABS: AUTOMATED NEUTROPHIL # 5.8 TH/MM3 (1.8-7.7); BASOPHIL % 0.3 % (0.0-2.0); EOSINOPHIL # 0.1 TH/MM3 (0-0.4); EOSINOPHIL % 1.2 % (0.0-4.0); HEMATOCRIT 46.7 % (39.0-51.0); LYMPH % 11.3 % (9.0-44.0); LYMPHOCYTE # 0.8 TH/MM3 (1.0-4.8); MEAN CELL VOLUME 88.2 FL (80.0-100.0); MEAN CORPUSCULAR HEMOGLOBIN 30.3 PG (27.0-34.0); MEAN CORPUSCULAR HGB CONC 34.3 % (32.0-36.0); MEAN PLATELET VOLUME 8.2 FL (7.0-11.0); MONO % 9.8 % (0.0-8.0); MONOCYTE # 0.7 TH/MM3 (0-0.9); NEUT % 77.4 % (16.0-70.0); PLATELET COUNT 238 TH/MM3 (150-450); RED BLOOD COUNT 5.29 MIL/MM3 (4.50-5.90); RED CELL DISTRIBUTION WIDTH 13.4 % (11.6-17.2); WHITE BLOOD COUNT 7.4 TH/MM3 (4.0-11.0)
[2017-09-22 11:55] LABS: BICARBONATE 26.1 MEQ/L (21.0-32.0)
[2017-09-22] MEDS ORDERED: REGADENOSON INJ 0.4 MG/5 ML SYR IV ONE (12:20)
[2017-09-22 12:24] LABS: CALCIUM 7.5 MG/DL (8.5-10.1)
--- NOTE | 2017-09-22 13:34 | RADRPT ---
EXAM DATE/TIME: 09/22/2017 12:03 [facility] COMPARISON: No previous studies available for comparison. INDICATIONS : Substernal chest pain. Angina. DOSE: 26.8 mCi Tc99m Myoview at stress. 8.8 mCi Tc99m Myoview at rest. 0.4 mg Lexiscan STRESS SYMPTOMS: Shortness of breath and a headache. EJECTION FRACTION: 67% MEDICAL HISTORY : Gastroesophageal reflux disease. Peripheral vascular disease. Melanoma. SURGICAL HISTORY : Melanoma removal. ENCOUNTER: Initial ACUITY: 1 day PAIN SCALE: 4/10 LOCATION: Substernal chest TECHNIQUE: The patient underwent pharmacologic stress with infusion of prescribed dose. Continuous ECG tracing was monitored during stress. Gated SPECT imaging was performed after stress and conventional SPECT i maging was performed at rest. The examination was performed on a SPECT/CT scanner, both attenuation and non-corrected datasets were reviewed. FINDINGS: DISTRIBUTION: The maximum perfused segment at stress is in the septal wall. PERFUSION STUDY: There is mild decreased uptake in the anterior wall on stress and rest images which may be secondary to breast attenuation. There is mild decreased activity seen in the central portion of the inferior w all ventricle on stress images compared to rest images that is seen on the attenuated corrected image s. The differences in the order of 10-20%. GATED STUDY: There is intact wall motion and thickening without hypokinetic or dyskinetic segments. CONCLUSION: No definite areas of ischemia are seen. There is mild variation of activity seen in the septal portio n of the inferior wall at the mid ventricle on the stress images compared to the rest images on the a ttenuated corrected images. This is can be within normal variability. This borderline finding can be correlated with any other cardiac signs. RISK CATEGORY: Low (<1% Annual Mortality Rate) Earle Rasheed MD on September 22, 2017 at 13:19 Board Certified Radiologist. This report was verified electronically.
--- NOTE | 2017-09-22 19:57 | EKG ---
Date Performed: 09/21/2017 Time Performed: 19:58:40 PTAGE: 67 years EKG: SINUS TACHYCARDIA WITH OCCASIONAL SUPRAVENTRICULAR PREMATURE COMPLEXES NONSPECIFIC T-WAVE A BNORMALITY ABNORMAL RHYTHM ECG Since the PREVIOUS TRACING , no significant change noted PREVIOUS TRACIN09/21/2017 15.05 DOCTOR: Ventura Craig Interpretating Date/Time 09/22/2017 19:56:22
--- NOTE | 2017-09-22 19:57 | EKG ---
Date Performed: 09/21/2017 Time Performed: 15:05:24 PTAGE: 67 years EKG: SINUS TACHYCARDIA ABNORMAL RHYTHM ECG Since the PREVIOUS TRACING , no significant change noted PREVIOUS TRACIN09/21/2017 03.56 DOCTOR: Ventura Craig Interpretating Date/Time 09/22/2017 19:56:13
[2017-09-22] MEDS: ATORVASTATIN 10 MG TAB PO SCH (20:07)
[2017-09-23] VITALS: BP 122/59; PULSE 92; RESP 20; TEMP 96.9; O2SAT 93
[2017-09-23] MEDS: CIPROFLOXACIN 400 MG PREMIX 200 ML IV SCH ×2 (00:15→08:49)
[2017-09-23] MEDS: metroNIDAZOLE 500 MG INJ 100 ML IV SCH ×2 (02:00→10:00)
[2017-09-23 04:00] VITALS: BP 139/87; PULSE 92; RESP 20; TEMP 97.4; O2SAT 95
[2017-09-23] MEDS: oxyCODONE/ACETAMINOPHEN 7.5 MG/325 MG TAB PO PRN (04:19)
[2017-09-23 07:01] VITALS: PULSE 76
[2017-09-23 07:31] LABS: AUTOMATED NEUTROPHIL # 3.9 TH/MM3 (1.8-7.7); BASOPHIL % 0.5 % (0.0-2.0); EOSINOPHIL # 0.2 TH/MM3 (0-0.4); HEMATOCRIT 42.5 % (39.0-51.0); HEMOGLOBIN 14.3 GM/DL (13.0-17.0); LYMPH % 19.4 % (9.0-44.0); LYMPHOCYTE # 1.2 TH/MM3 (1.0-4.8); MEAN CELL VOLUME 87.7 FL (80.0-100.0); MEAN CORPUSCULAR HEMOGLOBIN 29.5 PG (27.0-34.0); MEAN CORPUSCULAR HGB CONC 33.7 % (32.0-36.0); MEAN PLATELET VOLUME 8.9 FL (7.0-11.0); MONO % 12.4 % (0.0-8.0); MONOCYTE # 0.7 TH/MM3 (0-0.9); NEUT % 64.7 % (16.0-70.0); PLATELET COUNT 212 TH/MM3 (150-450); RED BLOOD COUNT 4.85 MIL/MM3 (4.50-5.90); RED CELL DISTRIBUTION WIDTH 13.6 % (11.6-17.2)
[2017-09-23 07:50] VITALS: BP 141/81; PULSE 83; RESP 20; TEMP 96.2; O2SAT 93
[2017-09-23 07:57] LABS: BICARBONATE 24.6 MEQ/L (21.0-32.0); CALCIUM 7.4 MG/DL (8.5-10.1); CREATININE 0.77 MG/DL (0.60-1.30)
[2017-09-23 08:13] LABS: CALCIUM-PROTEIN CORRECTED 8.2 MG/DL (8.5-10.1); TOTAL PROTEIN 5.6 GM/DL (6.4-8.2)
[2017-09-23] MEDS: CLOPIDOGREL 75 MG TAB PO SCH (08:49)
[2017-09-23] MEDS: LACTOBACILLUS ACIDOPHILUS TAB PO SCH (08:49)
[2017-09-23] MEDS: GABAPENTIN 100 MG CAP PO SCH (08:49)
[2017-09-23] MEDS: SODIUM CHLOR 0.9% 1000 ML INJ 1,000 ML IV SCH (08:49)
[2017-09-23] MEDS: PANTOPRAZOLE SOD 40 MG DELAYED RELEASE TAB PO SCH (08:50)
[2017-09-23] MEDS: ASPIRIN EC 81 MG TABEC PO SCH (08:50)
[2017-09-23] MEDS: DOCUSATE SODIUM 50 MG/SENNA 8.6 MG TAB PO SCH (08:51)
[2017-09-23] MEDS: BETAMETHASONE/CLOTRIMAZOLE CREAM 15 GM TOPICAL SCH (08:52)
--- NOTE | 2017-09-23 09:29 | HHI.PR ---
Subjective Remarks In bed appears in nad. No fever or chills. No n/v/d/c. No more diarrhea since yesterday. No nausea nad able to eat well and keeps down food. Objective Vitals Vital Signs Date Time Temp Pulse Resp B/P (MAP) Pulse Ox O2 Delivery O2 Flow Rate FiO2 09/23/17 07:01 76 09/23/17 04:00 97.4 92 20 139/87 (104) 95 09/23/17 00:00 96.9 92 20 122/59 (80) 93 09/22/17 20:00 97.4 90 20 132/75 (94) 94 09/22/17 20:00 92 09/22/17 18:11 94 09/22/17 16:00 97.1 90 14 137/69 (91) 95 09/22/17 12:00 96.4 96 20 131/64 (86) 93 I/O 09/22/17 09/22/17 09/22/17 09/23/17 09/23/17 09/23/17 07:00 15:00 23:00 07:00 15:00 23:00 Intake Total 1300 ml 300 ml 300 ml 520 ml Balance 1300 ml 300 ml 300 ml 520 ml Intake Oral 0 ml 120 ml IV Total 1300 ml 300 ml 300 ml 400 ml # Voids 2 6 # Bowel Movements 1 2 Result Diagram: 09/23/1720 09/23/17 0620 Imaging Last Impressions Chest X-Ray 09/21/17 0345 Signed Impressions: Service Date/Time: Thursday, September 21, 2017 04:20 - CONCLUSION: No acute disease. Kenney Birmingham MD CT Angiography 09/21/17 0000 Signed Impressions: Service Date/Time: Thursday, September 21, 2017 05:05 - CONCLUSION: 1. Emphysema and bullous change. 2. No evidence of pulmonary embolism. Kenney Birmingham MD Abdomen/Pelvis CT 09/21/17 0000 Signed Impressions: Service Date/Time: Thursday, September 21, 2017 05:05 - CONCLUSION: 1. Unremarkable bowel gas pattern. 2. Benign-appearing cystic lesions in the liver. 3. Small hiatal hernia. Kenney Birmingham MD Objective Remarks GENERAL: This is a well-nourished, well-developed patient, in no apparent distress. CARDIOVASCULAR: Regular rate and rhythm without murmurs, gallops, or rubs. RESPIRATORY: Clear to auscultation. Breath sounds equal bilaterally. No wheezes , rales, or rhonchi. GASTROINTESTINAL: Abdomen soft, non-tender, nondistended. No hepato-splenomegaly , or palpable masses. No guarding. MUSCULOSKELETAL: Extremities without clubbing, cyanosis, or edema. No joint tenderness, effusion, or edema noted. No calf tenderness. Negative Homans sign bilaterally. NEUROLOGICAL: Awake and alert. Cranial nerves II through XII intact. Motor and sensory grossly within normal limits. Five out of 5 muscle strength in all muscle groups. Normal speech. A/P Problem List: (1) Chest pain ICD Code: R07.9 - Chest pain Status: Acute (2) SIRS (systemic inflammatory response syndrome) ICD Code: R65.10 - Systemic inflammatory response syndrome (SIRS) of non- infectious origin without acute organ dysfunction Status: Acute Assessment and Plan This is a 67-year-old male patient with a known medical history of GERD, melanoma and PAD who presented to the ED with complaints of chest pain. Chest pain - Serial EKGs and serial troponins neg x3. EKG reviewed showing sinus tachycardia, no ST changes. Continued on cardiac telemetry, monitor for any arrhythmias. - Lexiscan is negative - Continue daily aspirin. Control pain, morphine IV available as needed for pain scale. - Supplemental O2 as needed, patient on room air with adequate saturations. Poss sepsis (Leukocytosis and tachycardia on presentation, poss GI source- GE). Epigastric pain with diarrhea and vomiting (GE) Positive norovirus, other stool studies pending , however n/v/diarrhea resolved -Lactic acid 2.0. White blood cell 17.0, tachycardic on admission. UA negative. CXR no signs of infection. Neg C. difficile. -Chest x-ray reviewed showing no acute disease. CT angiogram reviewed showing emphysema and bullous change. No evidence of PE. Abdomen/pelvis CT reviewed showing unremarkable bowel gas pattern. Small hiatal hernia. -Status post 1 L NS bolus in the ED. -Blood cultures ordered and pending, NTD - WBC back to normal History of PAD and stent placement in left lower extremity: Continue aspirin, Plavix and gabapentin. Hyperlipidemia, chronic: Continue home atorvastatin. Lexiscan normal. Improved DC home in stable condition to follow up as OP with PCP and consultants. Discharge Planning DC plan DC home in stable condition condition, to follow-up with PCP and consultants as outpatient Diet healthy heart diet Activity ad xander. as tolerated Medications per med reconciliation Ashanti Wu MD Sep 23, 2017 09:29
--- NOTE | 2017-09-23 11:24 | HHI.DS ---
Discharge Summary Admission Date Sep 21, 2017 at 06:21 Discharge Date: Sep 23, 2017 Admitting Diagnosis Chest pain; leukocytosis (1) Chest pain ICD Code: R07.9 - Chest pain Status: Acute (2) SIRS (systemic inflammatory response syndrome) ICD Code: R65.10 - Systemic inflammatory response syndrome (SIRS) of non- infectious origin without acute organ dysfunction Status: Acute Procedures none Brief History - From Admission Written by Kanika Edouard, acting as scribe for Dr. Wu on 09/21/17 at 13:30. This is a 67-year-old male patient with a known medical history of GERD, melanoma and PAD who presented to the ED with complaints of chest pain. Patient states he woke up at 0130 with burping and chest pain. Patient characterized the pain as aching in nature. Chest pain lasts roughly 5 minutes, release of gas and burping makes the pain worse, and dissipates after. Denies any radiation of pain. No chest pain to palpation. Denies any known alleviating factors. Does admit to associated emesis x 6 times today. Denies nausea. Admits to lightheadedness, dizzy and weak and diaphoresis. Attempted eating today but has no appetite with continued gas and burping. Denies any recent fever, chills , cough. Does admit to seasonal allergies. Denies any prior CAD or heart disease. Left leg blood clot in 2014. Denies any PE. Does have PAD with left lower extremity stent and does take Plavix, aspirin and Lipitor. Did undergo a cardiac stress test June 2016 which was reportedly negative. Followed with Dr. Craig and sees him every 6 months. Admits to smoking 1 ppd x 30 years, quit in December 2014. Admits to using vapors. At the time of assessment patient's chest pain has improved. is at bedside assisting with history. CBC/BMP: 09/23/17 0620 09/23/17 0620 Significant Findings Laboratory Tests Test 09/21/17 03:53 09/21/17 06:30 09/21/17 08:10 09/21/17 15:10 White Blood Count 17.0 TH/MM3 (4.0-11.0) Red Blood Count 6.38 MIL/MM3 (4.50-5.90) Hemoglobin 18.6 GM/DL (13.0-17.0) Hematocrit 55.7 % (39.0-51.0) Neutrophils (%) (Auto) 86.6 % (16.0-70.0) Lymphocytes (%) (Auto) 5.5 % (9.0-44.0) Basophils (%) (Auto) 2.7 % (0.0-2.0) Neutrophils # (Auto) 14.8 TH/MM3 (1.8-7.7) Lymphocytes # (Auto) 0.9 TH/MM3 (1.0-4.8) Basophils # (Auto) 0.5 TH/MM3 (0-0.2) Activated Partial Thromboplast Time 23.8 SEC (24.3-30.1) Random Glucose 177 MG/DL (74-106) Estimat Glomerular Filtration Rate 55 ML/MIN (>89) Troponin I LESS THAN 0.02 NG/ML LESS THAN 0.02 NG/ML Test 09/21/17 17:30 09/22/17 11:00 09/22/17 13:45 09/23/17 06:20 Troponin I LESS THAN 0.02 NG/ML Neutrophils (%) (Auto) 77.4 % (16.0-70.0) Monocytes (%) (Auto) 9.8 % (0.0-8.0) 12.4 % (0.0-8.0) Lymphocytes # (Auto) 0.8 TH/MM3 (1.0-4.8) Calcium Level 7.5 MG/DL (8.5-10.1) 7.4 MG/DL (8.5-10.1) Estimat Glomerular Filtration Rate 75 ML/MIN (>89) Total Protein 5.6 GM/DL (6.4-8.2) Chloride Level 110 MEQ/L (98-107) Protein Corrected Calcium 8.2 MG/DL (8.5-10.1) Imaging Last Impressions Chest X-Ray 09/21/17 2112 Signed Impressions: Service Date/Time: Thursday, September 21, 2017 04:20 - CONCLUSION: No acute disease. Kenney Birmingham MD CT Angiography 09/21/17 0000 Signed Impressions: Service Date/Time: Thursday, September 21, 2017 05:05 - CONCLUSION: 1. Emphysema and bullous change. 2. No evidence of pulmonary embolism. Kenney Birmingham MD Abdomen/Pelvis CT 09/21/17 0000 Signed Impressions: Service Date/Time: Thursday, September 21, 2017 05:05 - CONCLUSION: 1. Unremarkable bowel gas pattern. 2. Benign-appearing cystic lesions in the liver. 3. Small hiatal hernia. Kenney Birmingham MD PE at Discharge GENERAL: This is a well-nourished, well-developed patient, in no apparent distress. CARDIOVASCULAR: Regular rate and rhythm without murmurs, gallops, or rubs. RESPIRATORY: Clear to auscultation. Breath sounds equal bilaterally. No wheezes , rales, or rhonchi. GASTROINTESTINAL: Abdomen soft, non-tender, nondistended. No hepato-splenomegaly , or palpable masses. No guarding. MUSCULOSKELETAL: Extremities without clubbing, cyanosis, or edema. No joint tenderness, effusion, or edema noted. No calf tenderness. Negative Homans sign bilaterally. NEUROLOGICAL: Awake and alert. Cranial nerves II through XII intact. Motor and sensory grossly within normal limits. Five out of 5 muscle strength in all muscle groups. Normal speech. Hospital Course This is a 67-year-old male patient with a known medical history of GERD, melanoma and PAD who presented to the ED with complaints of chest pain. Chest pain - Serial EKGs and serial troponins neg x3. EKG reviewed showing sinus tachycardia, no ST changes. Continued on cardiac telemetry, monitor for any arrhythmias. - Lexiscan is negative - Continue daily aspirin. Control pain, morphine IV available as needed for pain scale. - Supplemental O2 as needed, patient on room air with adequate saturations. Poss sepsis (Leukocytosis and tachycardia on presentation, poss GI source- GE). Epigastric pain with diarrhea and vomiting (GE) Positive norovirus, other stool studies pending , however n/v/diarrhea resolved -Lactic acid 2.0. White blood cell 17.0, tachycardic on admission. UA negative. CXR no signs of infection. Neg C. difficile. -Chest x-ray reviewed showing no acute disease. CT angiogram reviewed showing emphysema and bullous change. No evidence of PE. Abdomen/pelvis CT reviewed showing unremarkable bowel gas pattern. Small hiatal hernia. -Status post 1 L NS bolus in the ED. -Blood cultures ordered and pending, NTD - WBC back to normal History of PAD and stent placement in left lower extremity: Continue aspirin, Plavix and gabapentin. Hyperlipidemia, chronic: Continue home atorvastatin. Lexiscan normal. Improved DC home in stable condition to follow up as OP with PCP and consultants. Pt Condition on Discharge: Stable Discharge Disposition: Discharge Home Discharge Time: > 30 minutes Discharge Instructions DIET: Follow Instructions for: Heart Healthy Diet Activities you can perform: Regular-No Restrictions Follow up Referrals: Cardiology - 2 Weeks Gastroenterology - 2 Weeks PCP Follow-up - 2-3 Days New Medications: Ciprofloxacin (Ciprofloxacin) 500 Mg Tab 500 MG PO BID for Infection for 8 Days, #16 TAB 0 Refills Lactobacillus Acidophilus (Lactinex) 1 Chew 1 TAB CHEW DAILY for Nutritional Supplement for 30 Days, #30 TAB 0 Refills Metronidazole (Flagyl) 500 Mg Tab 500 MG PO TID for Infection for 8 Days, TAB 0 Refills Continued Medications: Aspirin (Aspirin) 81 Mg Tabdr 81 MG PO DAILY, TAB Atorvastatin (Atorvastatin) 10 Mg Tab 10 MG PO HS for Cholesterol Management, #90 TAB 3 Refills Clopidogrel (Plavix) 75 Mg Tab 75 MG PO DAILY for Blood Clot Prevention, #90 TAB 3 Refills Clotrimazole-Betamethasone Topical (Clotrimazole-Betamethasone Topical) 1-0.05% Cream 1 APPLIC TOPICAL BID for Fungal Infection, #30 GM 3 Refills Diazepam (Diazepam) 5 Mg Tab 5 MG PO Q6HR PRN for PAIN SCALE 5 TO 10, #30 TAB 0 Refills Gabapentin (Gabapentin) 100 Mg Cap 200 MG PO TID for cervical neuropathy, #540 CAP 2 Refills Two capsule three times a day Oxycodone-Acetaminophen (Oxycodone-Acetaminophen) 7.5-325 mg Tab 1 TAB PO Q6H PRN for PAIN, #30 TAB 0 Refills Pantoprazole (Pantoprazole) 40 Mg Tab 40 MG PO DAILY for Reflux, #90 TAB 3 Refills Ashanti Wu MD Sep 23, 2017 11:23
[2017-09-23 11:50] VITALS: BP 160/82; PULSE 81; RESP 20; TEMP 97.7; O2SAT 91
== END 2017-09-23 12:48 | disposition home or self-care (01) ==
LOC: PHED 03:12 → PHEDA 06:21 → PH3A 08:39
PROVIDERS: ADMIT Hospitalist; ATTEND Hospitalist
DX: R07.9 Chest pain, unspecified (principal); R65.10 Systemic inflammatory response syndrome (SIRS) of non-infectious origin without acute organ dysfunction; K21.9 Gastro-esophageal reflux disease without esophagitis; Z85.820 Personal history of malignant melanoma of skin; R00.0 Tachycardia, unspecified; R10.13 Epigastric pain; R19.7 Diarrhea, unspecified; R06.02 Shortness of breath; R11.2 Nausea with vomiting, unspecified; J43.9 Emphysema, unspecified; E78.5 Hyperlipidemia, unspecified; R94.31 Abnormal electrocardiogram [ECG] [EKG]; I49.3 Ventricular premature depolarization; J30.2 Other seasonal allergic rhinitis; K44.9 Diaphragmatic hernia without obstruction or gangrene; R42 Dizziness and giddiness; R53.1 Weakness; R61 Generalized hyperhidrosis; Z79.899 Other long term (current) drug therapy; Z79.82 Long term (current) use of aspirin; Z87.891 Personal history of nicotine dependence; Z86.718 Personal history of other venous thrombosis and embolism
CPT/HCPCS: 71045; 71275; 74177; 78452; 80048; 80076; 81001; 82272; 82550; 83605; 83735; 84155; 84484; 85025; 85610; 85730; 87040; 87205; 87328; 87329; 87493; 87506; 93005; 93017; 96361; 96365; 96366; 96367; 96368; 96375; 99285; A9502; G0378; J0744; J2405; J2785; J7030; J7040; Q9967